=== PATIENT | male | born 1980 | race Hispanic/Latino ===

== ENCOUNTER 2023-08-07 20:00 | Emergency (ER) | payer BC, SELFPAY ==
[2023-08-07] VITALS (7 sets, daily range): BP systolic 96–136; BP diastolic 57–85; BMI 38.5
[2023-08-07 20:18] LABS: Glucose - Point of Care 108 mg/dl (70-99)
--- NOTE | 2023-08-07 20:22 | EDRN ---
Pt's says he is disoriented, pt saying 'random weird things, he isn't balanced, almost fell down the steps' Pt last seen normal last night around 1900. woke this morning and has not seen pt all day. Pt came home around 1700 and she said
'he was just weird, walking around in his boxers which he never does.' told him they were expecting company so he needed to get dressed and he said 'what does that mean?' Pt knows he is in the hospital and it is 2023. pt says 'I don't feel
too good, I am a little bit disoriented.' Pt says this is 'almost like every morning.' Pt has joint pain which 'recently' started. No headache, visual disturbance, dizziness, cp, sob, abd pain, n/v/d/constipation, fever/chills/cough, urinary
symptoms. Normal appetite. says pt told him he did not have breakfast and she made dinner and he would not eat. Pt denies alcohol intake and illicit drug usage.
[2023-08-07 20:33] LABS: % Immature Granulocytes 0.3 % (0-0.5); % Lymphocytes 33.5 % (20.5-51.1); % Monocytes 6.3 % (1.7-9.3); % Neutrophils 53.9 % (42.2-75.2); Absolute Basophils 0.1 10^3/uL (0-0.2); Absolute Eosinophils 0.4 10^3/uL (0-0.7); Absolute Lymphocytes 2.3 10^3/uL (1.2-3.4); Absolute Monocytes 0.4 10^3/uL (0.1-0.6); Absolute Neutrophils 3.8 10^3/uL (1.4-6.5); Hematocrit 41.1 % (39.0-52.0); Hemoglobin 15.1 g/dL (13.0-18.0); Mean Corp Hgb Conc. 36.7 g/dL (33.0-37.0); Mean Corpuscular Hgb 30.6 pg (27.0-31.0); Mean Corpuscular Volume 83.2 fL (80.0-94.0); Mean Platelet Volume 9.6 fL (7.4-10.4); Nucleated Red Blood Cells % 0 % (-); Platelet Count 248 10^3/uL (130-400); Red Blood Cell Count 4.94 10^6/uL (4.70-6.10); Red Cell Dist. Width 10.9 % (11.5-14.5)
[2023-08-07 20:45] LABS: ALT (SGPT) 45 U/L (0-50); AST (SGOT) 32 U/L (17-59); Albumin 4.7 g/dl (3.5-5.0); Alcohol 238 mg/dl; Alkaline Phosphatase 48 U/L (38-126); Blood Urea Nitrogen 10 mg/dl (9-20); Calcium 8.9 mg/dl (8.4-10.2); Carbon Dioxide 19 mmol/L (22-30); Chloride 105 mmol/L (98-107); Estimated Creatinine Clearance 124 ml/min; Glucose 110 mg/dl (70-99); Potassium 3.8 mmol/L (3.5-5.1); Sodium 135 mmol/L (135-145); Total Bilirubin 0.6 mg/dl (0.2-1.3); Total Protein 7.5 g/dl (6.3-8.2); eGFR > 60.00
--- NOTE | 2023-08-07 20:58 | EDRN ---
Asked pt what he drank today and he said water and coke zero. Asked pt what alcohol he drank and he said he did not. Informed pt of his alcohol level and he said nothing. Asked pt if he had beer, wine or hard liquor and he closed his eyes and
would not answer. says pt does not drink alcohol at home. Pt denies nausea. Dr Joyner updated.
[2023-08-07 21:03] LABS: Acetaminophen < 10 ug/ml (10-30); Salicylate < 1.0 mg/dl (2.0-20.0)
--- NOTE | 2023-08-07 21:58 | ED.GENMED ---
History of Present Illness
<Allison Joyner MD - Last Filed: 08/07/23 23:53>
General
Chief Complaint: Change in Mental Status
Source: patient
Exam Limitations: none
Time Seen by Provider: 08/07/23 20:15
Nursing documentation reviewed up to this point in time: agreed with
Travel History
Have you had any contact with someone who has COVID-19?: No
Do you have any symptoms of coronavirus? Fever > 100 degrees, chills, cough, shortness of breath, sore throat, loss of taste or smell, muscle aches, or headache?: No
History of Present Illness
History of Present Illness:
The patient is a 44-year-old man brought in by his for mental status change. She reports he has been out running errands and when he got home, he seemed extremely drowsy and his eyes looked red. She reports at times he saying things that do
not make sense such as talking about grandchildren. She reports they have no grandchildren. She reports he has never acted like this before. He denies drugs and alcohol. He reports he last took his trazodone last night. He denies trauma. He
denies headache.
Past History
<Allison Joyner MD - Last Filed: 08/07/23 23:53>
Past History
ED Past Medical History: Psychiatric
ED Past Surgical History: Other
Social History
Tobacco: Non-smoker
Alcohol: Other (Patient denies alcohol)
Drug: None
Personal:
Living: with family
Employment: Other
Family History
Family History: Other
Review of Systems
<Allison Joyner MD - Last Filed: 08/07/23 23:53>
Review of Systems
Allergies reviewed?: Yes
Other source history: other (Spouse)
All Other Systems: ROS reviewed and negative except as documented in HPI and ROS
Constitutional: Reports fatigue
EENT: Reports no symptoms
Respiratory: Reports no symptoms
Cardiac: Reports no symptoms
ABD/GI: Reports no symptoms
: Reports no symptoms
Musculoskeletal: Reports no symptoms
Skin: Reports no symptoms
Neurological: Reports other
Endocrine: Reports no symptoms
Hematologic/Lymphatic: Reports no symptoms
Psychiatric: Reports no symptoms
Phy Exam
<Allison Joyner MD - Last Filed: 08/07/23 23:53>
Physical Exam
Physical Exam:
Physical Exam
General: Patient seems to be slurring words. Injected conjunctiva. However, awake and conversational
Neck: supple. no meningeal signs. normal psoterior pharynx
Heart: s1/s2 regular rate and rhythm, no murmur. equal radial pulses.
Lungs: no acute respiratory distress. clear bilaterally
Abdomen: normal bowel sounds. not tender. no CVAT
Neuro: alert and orientedx3. no focal neurological deficits, slight slurring of words. Face appears symmetric. 5 out of 5 strength in all extremities. Extraocular muscles intact. PERRL, EOMI
Skin: no rash
Psychiatric: well kept. interactive and cooperative
Extremities: no edema. no calf tenderness. negative homans. good distal pulses
Course
<Allison Joyner MD - Last Filed: 08/07/23 23:53>
Orders/Labs/Results
Orders:
Orders
08/07/23 20:22
Acetaminophen Urgent
Alcohol Urgent
Complete Blood Count/With Diff Urgent
Comprehensive Metabolic Panel Urgent
Salicylate Urgent
08/07/23 20:30
CT Head W/o Iv Contrast Urgent
Comment:
Reason For Exam: pt disoriented, slow slurred speech
08/07/23 20:44
Add On- LAB Urgent
Tests Added?: salicylate, acetaminophen
Abnormal Lab Results
08/07/23 08/07/23
20:16 20:22
RDW 10.9 L %
(11.5-14.5)
Carbon Dioxide 19 L mmol/L
(22-30)
Glucose 110 H mg/dl
(70-99)
Salicylates < 1.0 L mg/dl
(2.0-20.0)
Acetaminophen < 10 L ug/ml
(10-30)
POC Glucose 108 H mg/dl
(70-99)
08/07/23 20:22
08/07/23 20:22
Vital Signs
Initial and Last Documented VS:
Initial Vital Signs
Temp Pulse Resp BP Pulse Ox
97.8 F 78 18 136/85 97
08/07/23 20:03 08/07/23 20:03 08/07/23 20:03 08/07/23 20:03 08/07/23 20:03
Last Documented Vital Signs
Temp Pulse Resp BP Pulse Ox
97.8 F 76 16 112/86 100
08/07/23 20:03 08/08/23 07:33 08/08/23 07:33 08/08/23 07:33 08/08/23 07:33
<Suri Ford MD - Last Filed: 08/11/23 11:51>
Orders/Labs/Results
Orders:
Orders
08/07/23 20:22
Acetaminophen Urgent
Alcohol Urgent
Complete Blood Count/With Diff Urgent
Comprehensive Metabolic Panel Urgent
Salicylate Urgent
08/07/23 20:30
CT Head W/o Iv Contrast Urgent
Comment:
Reason For Exam: pt disoriented, slow slurred speech
08/07/23 20:44
Add On- LAB Urgent
Tests Added?: salicylate, acetaminophen
Abnormal Lab Results
08/07/23 08/07/23
20:16 20:22
RDW 10.9 L %
(11.5-14.5)
Carbon Dioxide 19 L mmol/L
(22-30)
Glucose 110 H mg/dl
(70-99)
Salicylates < 1.0 L mg/dl
(2.0-20.0)
Acetaminophen < 10 L ug/ml
(10-30)
POC Glucose 108 H mg/dl
(70-99)
08/07/23 20:22
08/07/23 20:22
Vital Signs
Initial and Last Documented VS:
Initial Vital Signs
Temp Pulse Resp BP Pulse Ox
97.8 F 78 18 136/85 97
08/07/23 20:03 08/07/23 20:03 08/07/23 20:03 08/07/23 20:03 08/07/23 20:03
Last Documented Vital Signs
Temp Pulse Resp BP Pulse Ox
97.8 F 76 16 112/86 100
08/07/23 20:03 08/08/23 07:33 08/08/23 07:33 08/08/23 07:33 08/08/23 07:33
<Allison Joyner MD - Last Filed: 08/07/23 23:53>
MDM/Problems Addressed
Differential Diagnosis Includes:
Acute alcohol intoxication, illicit drug use, intracranial hemorrhage
MDM/Problems Addressed:
Patient presents with acute mental status change
Chronic conditions affecting care: Psychiatric illness
<Allison Joyner MD - Last Filed: 08/07/23 23:53>
*Radiology
Radiology exam reviewed: radiology read reviewed
*Pulse Oximetry
Patient hypoxic: no
*EKG
Interpreted by ED Provider?: NA
*Property Utilization Officer Interpretation
Rate: normal
Interpretation: normal
Rhythm: sinus
Data Reviewed
Source: patient and spouse
<Suri Ford MD - Last Filed: 08/11/23 11:51>
*Critical Care Note
Total Time (30-74mins, 75-104mins- exclusive of procedures): Not Applicable
<Allison Joyner MD - Last Filed: 08/07/23 23:53>
Update Note
Update Note:
11:00 PM patient did admit to his that he had at least 2 drinks of alcohol today. Patient's symptoms are consistent with alcohol intoxication. Patient is resting comfortably and once he is able to get up and walk around steadily, he will be
able to go home to stay with his family.
<Suri Ford MD - Last Filed: 08/11/23 11:51>
Update Note
Update Note:
11:00 PM patient did admit to his that he had at least 2 drinks of alcohol today. Patient's symptoms are consistent with alcohol intoxication. Patient is resting comfortably and once he is able to get up and walk around steadily, he will be
able to go home to stay with his family.
719 AM Pt awake, alert, lucid, no comlnts. here, will drive him home.
ED Attending Note
<Allison Joyner MD - Last Filed: 08/07/23 23:53>
-
Portions of this chart may have been created with voice recognition software.� Occasional wrong word or��sound alike� substitutions may have occurred due to the inherent limitations of voice recognition software.
Discharge Plan
Departure
Patient Disposition: Home (Routine Discharge)
Date of Disposition: 08/08/23
Time of Disposition: 07:19
Patient with high blood pressure during this ER visit?: No
Condition: Good
Covid-19: Not Applicable
Discharge Problem:
Alcohol intoxication
Instructions: Alcohol Intoxication ED
Prescriptions:
No Action
venlafaxine 150 mg Capsule,Extended Release 24hr
150 mg PO DAILY
trazodone 100 mg Tablet
100 mg PO HS PRN (Reason: insomnia)
escitalopram oxalate 20 mg Tablet
20 mg PO DAILY
Referrals:
Tony Zhou MD [Family Provider] -
Interventions
Interventions:
*Risk Screen - Suicide Last Done: 08/07/23 20:03
*General Assessment Last Done: 08/07/23 20:03
*Neglect/Abuse Screening Last Done: 08/07/23 20:03
ED- Fall Risk Assessment Last Done: 08/08/23 07:33
*ED COVID-19 Vaccine History Last Done: 08/07/23 20:03
*Nursing Disposition Last Done: 08/08/23 07:33
ED- Pulmonary Assessment Last Done: 08/07/23 20:32
ED- Neurological Assessment Last Done: 08/07/23 20:38
ED- Cardiac Assessment Last Done: 08/07/23 20:32
Discharge Date and Time
Discharge Date/Time: 08/08/23 07:30
[2023-08-08] VITALS: BP 102/65
[2023-08-08 01:00] VITALS: BP 113/73
[2023-08-08 07:23] VITALS: BP 112/86
--- NOTE | 2023-08-08 07:32 | EDRN ---
Reviewed discharge instructions with patient. Verbalized understanding. Ambulated with steady gait to the lobby.
[2023-08-08 07:33] VITALS: BP 112/86
== END 2023-08-08 07:30 | disposition home or self-care (01) ==
LOC: EMR 20:00
PROVIDERS: EMERGENCY PHYSICIAN Emergency Medicine; FAMILY PHYSICIAN Family Medicine
DX: F10.129 Alcohol abuse with intoxication, unspecified (principal)
CPT/HCPCS: 99284; 70450; 80053; 80143; 80179; 82077; 82962; 85025